=== PATIENT | male | born 1965 ===

== ENCOUNTER 2017-08-06 16:53 | Inpatient (IN) ==
[2017-08-06 18:54] LABS: Basophils % 0.2 %; Hematocrit 41.8 % (37.5-50.1)
[2017-08-06 18:55] LABS: Basophils # 0.1 K/mcL (0.0-0.2); Hemoglobin 13.5 g/dL (12.9-16.9); Immature Granulocytes % 0.7 % (0-4); Lymphocytes # 0.8 K/mcL (0.6-4.6); Mean Corpuscular HGB Conc 32.3 g/dL (31.6-35.5); Mean Corpuscular Hemoglobin 28.4 pg (28.0-33.3); Mean Corpuscular Volume 87.8 fL (83.0-100.0); Mean Platelet Volume 10.1 fL (9.4-12.4); Monocytes # 1.1 K/mcL (0.0-1.3); Monocytes % 4.3 %; Platelet Count 271 K/mcL (140-400); Red Blood Count 4.76 M/mcL (4.19-5.50); Red Cell Distribution Width 14.2 % (11.5-14.5); Segmented Neutrophils % 91.8 %
[2017-08-06 19:05] LABS: Albumin 3.7 g/dL (3.5-5.0); Albumin/Globulin Ratio 0.8 (1.1-2.2); Bilirubin,Total 1.8 mg/dL (0.2-1.2); Calcium 9.8 mg/dL (8.6-10.8); Globulin 4.5 g/dL (2.4-3.5); Potassium 4.1 mEq/L (3.5-4.5); Total Protein 8.2 g/dL (6.0-8.3)
--- NOTE | 2017-08-06 19:21 | Emergency Department Note ---
Disposition Clinical Impression: Diverticulitis, Perforated diverticulum, Leukocytosis Disposition: Admitted As Inpatient Condition: Good Referrals: Shawna Quiñones, [employer]ERE[employer] EQUIPMENT SALESPERSON [Primary Care Provider] - Forms: Work/School Release, ED Satisfaction Letter Time of Disposition: 22:36 Abdominal Pain HPI - General Chief Complaint: ED Abdominal Pain Stated Complaint: abd pain Time Seen by Provider: 08/06/17 19:15 Source: patient Nursing Notes Reviewed: Yes Vital Signs Reviewed: Yes - History of Present Illness HPI Narrative: Patient presenting to the ED with periumbilical abdominal pain since last night. Nonexertional. During onset. Has been constant, dull, achy, nonradiating. Associated with nausea and vomiting. States any movement of his abdomen whatsoever makes it worse. Decreased appetite. No dysuria, hematuria, flank pain, diarrhea. Subjective fever and chills. No previous abdominal surgeries. So, his primary care physician today who told him to come straight to the ER. Pain Scale: 6 - Related Data Allergies Allergy/AdvReac Type Severity Reaction Status Date / Time No Known Allergies Allergy Verified 08/06/17 17:26 All systems ED: reviewed and negative except as stated. Constitutional: Denies: fever Cardiovascular: Denies: chest pain Respiratory: Denies: dyspnea Gastrointestinal: Reports: abdominal pain, nausea, vomiting Integumentary: Denies: rash Abdominal Pain PMH - Past Medical History Medical history: Reports: kidney stones Male Surgical History: Reports: sinus surgery Psychiatric history: Reports: anxiety - Social History Smoking status: Never smoker Alcohol use: Reports: none Drug use: Reports: none Physical Exam - General Limitations: no limitations General appearance: alert, obese (Appears uncomfortable) - Head Head exam: atraumatic, normocephalic, normal inspection - Eye Eye exam: Present: normal appearance, PERRL, EOMI - Neck Neck exam: Present: normal inspection, full ROM, trachea midline - Respiratory Respiratory exam: Present: normal lung sounds bilaterally - Cardiovascular Cardiovascular exam: Present: regular rate, normal rhythm, normal heart sounds - Abdominal Exam Abdominal exam: Present: soft, tenderness, distention, guarding Abdominal tenderness: Present: epigastrium (Mild), moderate (Periumbilical) - Rectal Exam Rectal exam: Present: deferred - Extremities Exam Extremities exam: Present: normal inspection, full ROM. Absent: tenderness, pedal edema Course - Reevaluation(s) Reevaluation #1: patient presents with abd pain and leukocytosis. abdominal exam concerning for acute abdomen due to guarding. Will add lactic acid and CT abd/pelvis. R/o Appy vs perf vs hernia - Consultations Consultation #1: CT showed a perforated diverticulitis. We will contact surgery. Surgery states he will be in to see the patient. Time: 22:33 Vital Signs Temperature 99.2 F 08/06/17 17:26 Pulse Rate 90 08/06/17 17:26 Respiratory Rate 20 08/06/17 17:26 Blood Pressure 113/78 08/06/17 17:26 O2 Sat by Pulse Oximetry 93 08/06/17 17:26 Temperature 99.2 F 08/06/17 17:26 Pulse Rate 90 08/06/17 17:26 Respiratory Rate 20 08/06/17 17:26 Blood Pressure 113/78 08/06/17 17:26 O2 Sat by Pulse Oximetry 93 08/06/17 17:26 Oxygen Delivery Oxygen Delivery Room Air Abdominal Pain - MDM Narrative Medical decision making narrative: I examined this patient and my medical decision-making was reviewed with the Resident Physician. I agree with the documented findings, disposition and treatment plan as described except to the extent set forth below. Patient seen and evaluated today by Dr. Koehler and myself, I agree with his evaluation management plan, supervise care the patient's stay. Patient comes in with epigastric and periumbilical abdominal pain this been going on for 24 hours. He is not any surgeries on his abdomen recently. He denies any chest pain or back pain no fevers or chills. I think he could have ischemic bowel or he could have a hernia here in this area. He has an elevated creatinine so we cannot do IV contrast showed oral contrast CT try to make him more comfortable and check lab work. He will most likely need admission. He is in agreement with this plan. Abdomen/Pelvis CT 08/06/17 21:15 IMPRESSION: Evidence of lower descending/proximal colonic diverticulitis complicated by extraluminal fluid and gas suggesting perforation. Given the degree of wall thickening, follow-up to exclude underlying neoplasm is recommended. Fatty liver. Bibasilar atelectasis. D/ / Melanie Holden Cha, MD / Melanie Holden Cha, MD Interpreting Provider: Melanie Holden Cha, MD 2220 hrs. he has an elevated white count and a long with his CT findings we started him on IV antibiotics. Talking with surgery and then we will admit him. His critical care time excluding any separately billable procedures or 45 minutes. - Medical Records Medical records reviewed: Yes I reviewed the patient's medical records. - Lab Data Lab results reviewed: Yes I reviewed the patient's lab results. Result diagrams: 08/06/17 18:29 08/06/17 18:29 Lab Results 08/06/17 08/06/17 08/06/17 Range/Units 18:29 18:29 20:01 WBC 25.1 H (4.3-11.1) K/mcL RBC 4.76 (4.19-5.50) M/mcL Hgb 13.5 (12.9-16.9) g/dL Hct 41.8 (37.5-50.1) % MCV 87.8 (83.0-100.0) fL MCH 28.4 (28.0-33.3) pg MCHC 32.3 (31.6-35.5) g/dL RDW 14.2 (11.5-14.5) % Plt Count 271 (140-400) K/mcL MPV 10.1 (9.4-12.4) fL Immature Gran % 0.7 (0-4) % Seg Neutrophils % 91.8 % Lymphocytes % 3.0 % Monocytes % 4.3 % Eosinophils % 0.0 % Basophils % 0.2 % Neutrophils # 23.0 H (1.6-8.9) K/mcL Lymphocytes # 0.8 (0.6-4.6) K/mcL Monocytes # 1.1 (0.0-1.3) K/mcL Eosinophils # 0.0 (0.0-0.6) K/mcL Basophils # 0.1 (0.0-0.2) K/mcL Sodium 140 (136-145) mEq/L Potassium 4.1 (3.5-4.5) mEq/L Chloride 103 (98-109) mEq/L Carbon Dioxide 26 (19-29) mEq/L BUN 24 (8-26) mg/dL Creatinine 1.75 H (0.72-1.25) mg/dL Est GFR ( Amer) 50 L (> 60) Est GFR (Non-Af Amer) 41 L (> 60) BUN/Creatinine Ratio 14 (6-26) Glucose 121 H (70-99) mg/dL Calculated Osmolality 295 (280-300) Lactic Acid 2.0 (0.5-2.2) mmol/L Calcium 9.8 (8.6-10.8) mg/dL Total Bilirubin 1.8 H (0.2-1.2) mg/dL AST 12 (5-34) Units/L ALT 23 (0-55) Units/L Alkaline Phosphatase 92 (38-126) Units/L Serum Total Protein 8.2 (6.0-8.3) g/dL Albumin 3.7 (3.5-5.0) g/dL Globulin 4.5 H (2.4-3.5) g/dL Albumin/Globulin Ratio 0.8 L (1.1-2.2) Amylase 46 (25-125) Units/L Lipase 13 (8-78) Units/L Ur Specimen Adequacy Urine Color (Yellow) Urine Clarity (Clear) Urine Microscopic WBC (0-3) per hpf Ur Squamous Epith Cells (None-Few) per lpf Urine Bacteria (None-Few) per hpf Hyaline Casts (None-Few) per lpf Ur Culture Indicated? (NO) 08/06/17 Range/Units 21:19 WBC (4.3-11.1) K/mcL RBC (4.19-5.50) M/mcL Hgb (12.9-16.9) g/dL Hct (37.5-50.1) % MCV (83.0-100.0) fL MCH (28.0-33.3) pg MCHC (31.6-35.5) g/dL RDW (11.5-14.5) % Plt Count (140-400) K/mcL MPV (9.4-12.4) fL Immature Gran % (0-4) % Seg Neutrophils % % Lymphocytes % % Monocytes % % Eosinophils % % Basophils % % Neutrophils # (1.6-8.9) K/mcL Lymphocytes # (0.6-4.6) K/mcL Monocytes # (0.0-1.3) K/mcL Eosinophils # (0.0-0.6) K/mcL Basophils # (0.0-0.2) K/mcL Sodium (136-145) mEq/L Potassium (3.5-4.5) mEq/L Chloride (98-109) mEq/L Carbon Dioxide (19-29) mEq/L BUN (8-26) mg/dL Creatinine (0.72-1.25) mg/dL Est GFR ( Amer) (> 60) Est GFR (Non-Af Amer) (> 60) BUN/Creatinine Ratio (6-26) Glucose (70-99) mg/dL Calculated Osmolality (280-300) Lactic Acid (0.5-2.2) mmol/L Calcium (8.6-10.8) mg/dL Total Bilirubin (0.2-1.2) mg/dL AST (5-34) Units/L ALT (0-55) Units/L Alkaline Phosphatase (38-126) Units/L Serum Total Protein (6.0-8.3) g/dL Albumin (3.5-5.0) g/dL Globulin (2.4-3.5) g/dL Albumin/Globulin Ratio (1.1-2.2) Amylase (25-125) Units/L Lipase (8-78) Units/L Ur Specimen Adequacy See below A Urine Color [place] A (Yellow) Urine Clarity Clear (Clear) Urine Microscopic WBC 3-5 H (0-3) per hpf Ur Squamous Epith Cells Many H (None-Few) per lpf Urine Bacteria Few (None-Few) per hpf Hyaline Casts Few (None-Few) per lpf Ur Culture Indicated? NO (NO) - Radiology Data Radiology results reviewed: Yes I reviewed the patient's radiology results. - EKG Data EKG attestation: Yes I reviewed and interpreted this EKG. EKG results narrative: Sinus rhythm, rate 87, IA interval 136, QRS 86, QTC 400, normal axis, no acute ischemic changes. However, there is poor R-wave progression.
[2017-08-06] MEDS ORDERED: 0.9 % Sodium Chloride 1,000 ML IVC ONE (19:27)
[2017-08-06] MEDS ORDERED: *HR* HYDROmorphone (PF) 1 MG/ML SYRINGE IVP ONE ×2 (19:27→20:27)
[2017-08-06] MEDS ORDERED: Ondansetron 4 MG/2 ML VIAL IVP ONE (19:27)
[2017-08-06 21:45] LABS: Bacteria,Urine Few per hpf (None-Few); Squamous Epithelial Cell,Urine Many per lpf (None-Few)
[2017-08-06 21:51] LABS: Clarity,Urine Clear (Clear); Color,Urine Orange (Yellow)
[2017-08-06 21:52] LABS: Hyaline Casts,Urine Few per lpf (None-Few)
[2017-08-06] MEDS ORDERED: Piperacillin/Tazobactam 4.5 GM in D5% in Water (Mini-Bag+) 100 ML IVPB ONE (22:26)
[2017-08-06] MEDS: 0.9 % Sodium Chloride 1,000 ML IVC SCH (22:49)
[2017-08-07] MEDS ORDERED: 0.9 % Sodium Chloride 1,000 ML IVC ONE (00:41)
[2017-08-07] MEDS ORDERED: diazePAM 5 MG TABLET PO PRN (00:52)
[2017-08-07] MEDS ORDERED: tiZANidine 4 MG TABLET PO PRN (00:52)
--- NOTE | 2017-08-07 01:26 | General Surg History&Physical ---
Date of Encounter: 08/07/17 Time of Encounter: 01:23 Assessment and Plan (1) Diverticulitis Current Visit: Yes Status: Acute - NPO -IVF:D5LR@150 - antibiotics: zosyn - admit to inpatient -DVT prophylaxis -activity as tolerated - morphine for pain control - trend WBC, temperature I suspect that the perforation has sealed; he is not diffusely peritoneal nor does he have a surgical abdomen at this time; however, should his exam worsen or his labs and vitals suggest ongoing sepsis due to his diverticulitis, then will reconsider surgical intervention at that time The assessment and plan as outlined above was discussed with the patient and/or family members who expressed understanding and agreement. All questions were answered. Qualifiers: Diverticulitis site: large intestine Diverticulitis complication: with perforation and without abscess Qualified Code(s): K57.20 - Diverticulitis of large intestine with perforation and abscess without bleeding Code(s): K57.92 - Diverticulitis of intestine, part unspecified, without perforation or abscess without bleeding (2) Leukocytosis Current Visit: Yes Status: Acute -NPO -IVF -antibiotics: zosyn consequence of perforated diverticulitis; will trend with temperatures; The assessment and plan as outlined above was discussed with the patient and/or family members who expressed understanding and agreement. All questions were answered. Qualifiers: Qualified Code(s): D72.829 - Elevated white blood cell count, unspecified (3) Acute renal failure Current Visit: Yes Status: Acute -IVF - trend labs (BUN, Cr, HCO3) and UOP to assess for resuscitation - likley due to SIRS response from diverticulitis; The assessment and plan as outlined above was discussed with the patient and/or family members who expressed understanding and agreement. All questions were answered. Qualifiers: Qualified Code(s): N17.9 - Acute kidney failure, unspecified History of Present Illness Chief complaint: abdominal pain HPI: Mr. Bee is a morbidly obese 52 year old male who presents with 2 days of sharp abdominal pain localized to the left lower quadrant and suprapubic region nonradiating with no identifiable alleviating or exacerbating factors. The pain is not associated with nausea vomiting fevers chills chest pain or shortness of breath and is however associated with anorexia and poor by mouth intake. The patient was at work when he was ordered by his employer to go home because of a concern for the stomach flu the patient went to the emergency department for further evaluation due to worsening pain a CT scan was obtained demonstrating a concern for perforated diverticulitis. Surgery was consult for further evaluation Past Med Surg Social Fam HX - Past Medical History Medical history: kidney stones, other (morbid obesity) Psychiatric history: anxiety - Social History Smoking Status: Never smoker Smokeless Tobacco Status: No Alcohol use: none (stopped drinking 10+ years ago) Drug use: none Occupational status: employed Activity Level: Independent ambulation Medications and Allergies Escitalopram [Lexapro] 20 mg PO DAILY 08/06/17 [History] Ondansetron HCl [Ondansetron HCl] 4 mg PO DAILY 08/06/17 [History] Promethazine [Phenergan] 25 mg PO QPM 08/06/17 [History] Tizanidine HCl [Tizanidine HCl] 4 mg PO Q8H PRN 08/06/17 [History] diazePAM [Valium] 5 mg PO DAILY PRN 08/06/17 [History] 3 Allergy/AdvReac Type Severity Reaction Status Date / Time No Known Allergies Allergy Verified 08/06/17 17:26 Review of Systems All systems PM: reviewed and no additional remarkable complaints except as stated All systems PM: A 10-system review of systems was performed and is negative for pertinent findings except as documented above in the HPI. General Surgery Exam Initial Vital Signs Temp Pulse Resp BP Pulse Ox 99.2 F 90 20 113/78 93 08/06/17 17:26 08/06/17 17:26 08/06/17 17:26 08/06/17 17:26 08/06/17 17:26 - General physical appearance well developed, well nourished, no distress, obese - Eyes normal ocular movement - ENT normocephalic, CN 2-12 grossly intact - Respiratory normal expansion, normal respiratory effort, clear to auscultation - Abdomen Abdomen general surgery: Present: soft, tender Abdominal Tenderness: Present: LLQ (non peritoneal), suprapubic (non peritoneal) Hernia: Present: none - Integumentary Integumentary general surgery: Present: other (no pitting edema) - Psychiatric Psychiatric general surgery: Present: A&Ox3, appropriate Results - Labs 08/06/17 18:29 08/06/17 18:29 Abnormal lab results WBC 25.1 K/mcL (4.3-11.1) H 08/06/17 18:29 Neutrophils # 23.0 K/mcL (1.6-8.9) H 08/06/17 18:29 Creatinine 1.75 mg/dL (0.72-1.25) H 08/06/17 18:29 Est GFR ( Amer) 50 (> 60) L 08/06/17 18:29 Est GFR (Non-Af Amer) 41 (> 60) L 08/06/17 18:29 Glucose 121 mg/dL (70-99) H 08/06/17 18:29 POC Glucose 115 (58-89) H 08/07/17 00:49 Total Bilirubin 1.8 mg/dL (0.2-1.2) H 08/06/17 18: Globulin 4.5 g/dL (2.4-3.5) H 08/06/17 18:29 Albumin/Globulin Ratio 0.8 (1.1-2.2) L 08/06/17 18:29 Ur Specimen Adequacy See below A 08/06/17 21:19 Urine Color Couch (Yellow) A 08/06/17 21:19 Urine Microscopic WBC 3-5 per hpf (0-3) H 08/06/17 21:19 Ur Squamous Epith Cells Many per lpf (None-Few) H 08/06/17 21:19 All other labs normal. - Imaging CT scan - abdomen: report reviewed (fat stranding in LLQ/suprapubic region; (+) free air - focal area)
[2017-08-07] MEDS: *HR* Morphine 2 MG/ML SYRINGE IVP PRN ×6 (01:31→21:29)
[2017-08-07 04:41] LABS: INR 1.7; Prothrombin Time 18.2 Seconds (9.4-12.1)
[2017-08-07 04:44] LABS: Activated Partial Thrombo Time 28.2 Seconds (26.0-36.0); Basophils % 0.2 %; Eosinophils % 0.1 %; Hematocrit 36.1 % (37.5-50.1); Immature Granulocytes % 0.5 % (0-4); Lymphocytes # 0.9 K/mcL (0.6-4.6); Lymphocytes % 4.8 %; Mean Corpuscular HGB Conc 31.6 g/dL (31.6-35.5); Mean Corpuscular Hemoglobin 28.1 pg (28.0-33.3); Mean Corpuscular Volume 89.1 fL (83.0-100.0); Mean Platelet Volume 9.9 fL (9.4-12.4); Monocytes # 0.8 K/mcL (0.0-1.3); Monocytes % 4.3 %; Neutrophils # 17.1 K/mcL (1.6-8.9); Platelet Count 202 K/mcL (140-400); Red Blood Count 4.05 M/mcL (4.19-5.50); Red Cell Distribution Width 14.5 % (11.5-14.5); Segmented Neutrophils % 90.1 %
[2017-08-07 04:57] LABS: Hemoglobin 11.4 g/dL (12.9-16.9)
[2017-08-07] MEDS: *HR* Heparin 5,000 UNIT/ML VIAL SQ SCH ×3 (05:15→21:47)
[2017-08-07 06:09] LABS: Calcium 8.8 mg/dL (8.6-10.8); Potassium 4.5 mEq/L (3.5-4.5)
[2017-08-07] MEDS: Piperacillin/Tazobactam 3.375 GM in D5% in Water (Mini-Bag+) 100 ML IVPB SCH ×2 (07:51→15:55)
[2017-08-07] MEDS: Ondansetron ODT 4 MG TAB.RAPDIS PO SCH (07:53)
[2017-08-07] MEDS ORDERED: D5% in 0.45% NACL w KCl 20 MEQ/1,000 ML MLS IVC SCH (09:00)
[2017-08-07] MEDS ORDERED: D5% in 0.45% NACL 1,000 ML IVC ONE (09:38)
[2017-08-07] MEDS: D5% in 0.45% NACL 1,000 ML IVC SCH ×3 (10:00→22:14)
--- NOTE | 2017-08-07 10:31 | General Surgery Progress Note ---
Date of Encounter: 08/07/17 Time of Encounter: 08:15 - Assessment and Plan (1) Diverticulitis Current Visit: Yes Status: Acute still with abdominal pain, although improved keep NPO cont IVF; change to MIVF @15o0 cont abx regimen transfer to regular surg floor Qualifiers: Diverticulitis site: large intestine Diverticulitis complication: with perforation and without abscess Qualified Code(s): K57.20 - Diverticulitis of large intestine with perforation and abscess without bleeding Code(s): K57.92 - Diverticulitis of intestine, part unspecified, without perforation or abscess without bleeding (2) Leukocytosis Current Visit: Yes Status: Acute improved; repeat CBC in AM cont with abx Qualifiers: Qualified Code(s): D72.829 - Elevated white blood cell count, unspecified (3) Acute renal failure Current Visit: Yes Status: Acute worsening renal failure; likely 2/2 hypovolemia; - strict I/O; if UOP is less than 0.5cc/kg/hr by end of first shift 1500, then will place toscano catheter repeat labs in AM Qualifiers: Qualified Code(s): N17.9 - Acute kidney failure, unspecified Subjective Patient reports: no new complaints, still having pain, pain is less, no flatus, no bowel movement, afebrile Objective Intake and Output 08/06/17 08/07/17 08/07/17 23:59 07:59 15:59 Intake Total 1000 / 1000 Balance 1000 / 1000 Intake: IV Fluids 1000 / 1000 0.9 % Sodium Chloride 1, 1000 / 1000 000 ML @ 150 mls/hr IVC . Q6H40M COUNTS INCLUDE 234 BEDS AT [facility] Rx#:[id number] Other: Weight 111.6 kg Blood Glucose* 115 Patient Weight 08/07/17 23:59 Weight 111.6 kg - General physical appearance well developed, well nourished, no distress - Respiratory normal expansion, normal respiratory effort, clear to auscultation - Cardiovascular Cardiovascular exam: Present: RRR - Abdomen Abdomen: Present: soft, tender Abdominal Tenderness: LLQ, suprapubic Hernia: none - Integumentary no rash - Neurologic CN 2-12 grossly intact - Psychiatric oriented to time, oriented to person, oriented to place - Labs 08/07/17 04:29 08/07/17 05:47 Consult Discharge Plan - Plan Referrals: Shawna Quiñones, CRIMPER OPERATOR [Primary Care Provider] -
[2017-08-07] MEDS: Pantoprazole 40 MG VIAL IVP SCH (13:25)
--- NOTE | 2017-08-07 16:10 | Electrocardiograph Report ---
[address] [place], [place] [address] Test Date: 2017-08-06 Pat Name: Augustine Bee Department: 105 Room: 11 Gender: M Skilled Helper: WAQAR : 1965 Requested By: Dewayne Zhao Order Number: [id number] Reading MD: Ron George MD Measurements Intervals [place] Rate: 87 P: 11 NM: 136 QRS: 5 QRSD: 86 T: -1 QT: 356 QTc: 400 Interpretive Statements SINUS RHYTHM MINIMAL VOLTAGE CRITERIA FOR LVH Electronically Signed On 08-07-2017 16:08:49 EDT by Ron George MD
[2017-08-08] MEDS: Piperacillin/Tazobactam 3.375 GM in D5% in Water (Mini-Bag+) 100 ML IVPB SCH ×4 (00:21→23:27)
[2017-08-08] MEDS ORDERED: *HR* HYDROmorphone 20 MG/20 ML PCA IVC PRN (00:32)
[2017-08-08] MEDS: *HR* Morphine 2 MG/ML SYRINGE IVP PRN (01:30)
[2017-08-08] MEDS: D5% in 0.45% NACL 1,000 ML IVC SCH ×3 (04:14→19:31)
[2017-08-08] MEDS: *HR* Heparin 5,000 UNIT/ML VIAL SQ SCH ×3 (04:54→23:27)
[2017-08-08 06:22] LABS: Basophils % 0.2 %; Eosinophils # 0.1 K/mcL (0.0-0.6); Eosinophils % 0.5 %; Hematocrit 35.7 % (37.5-50.1); Immature Granulocytes % 0.4 % (0-4); Lymphocytes # 0.6 K/mcL (0.6-4.6); Lymphocytes % 5.8 %; Mean Corpuscular HGB Conc 30.8 g/dL (31.6-35.5); Mean Corpuscular Hemoglobin 27.3 pg (28.0-33.3); Mean Corpuscular Volume 88.6 fL (83.0-100.0); Mean Platelet Volume 10.2 fL (9.4-12.4); Monocytes # 0.5 K/mcL (0.0-1.3); Monocytes % 4.9 %; Neutrophils # 9.2 K/mcL (1.6-8.9); Platelet Count 219 K/mcL (140-400); Red Blood Count 4.03 M/mcL (4.19-5.50); Red Cell Distribution Width 14.3 % (11.5-14.5); Segmented Neutrophils % 88.2 %
[2017-08-08 06:33] LABS: BUN/Creatinine Ratio 12 (6-26); Calcium 8.7 mg/dL (8.6-10.8); Carbon Dioxide 25 mEq/L (19-29); Chloride 106 mEq/L (98-109); Glucose 148 mg/dL (70-99); Osmolality,Calculated 290 (280-300); Potassium 3.8 mEq/L (3.5-4.5); eGFR For African Americans > 60 (> 60); eGFR For Non-African Americans 54 (> 60)
[2017-08-08 06:36] LABS: Blood Urea Nitrogen 17 mg/dL (8-26)
[2017-08-08 06:37] LABS: Sodium 138 mEq/L (136-145)
--- NOTE | 2017-08-08 08:17 | General Surgery Progress Note ---
<Lorenza Berrios - Last Filed: 08/08/17 08:15> Date of Encounter: 08/08/17 Time of Encounter: 07:15 - Assessment and Plan (1) Diverticulitis Current Visit: Yes Status: Acute Improved. States discomfort is significantly improved. He endorses an appetite. WBC is normalized. -Continue supportive care and discomfort management -Clear liquids, advanced items tolerated -Decrease IV fluids to 75 ML's per hour will stop if he tolerates breakfast and lunch. 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 Add Percocet PRN 10 per 325 mg Q4 hours -Ambulate in the hallways at least 3 times daily and out of bed for all meals. Strongly encouraged the need for ambulation and use of incentive spirometer for pulmonary prevention. Patient verbalized understanding and adherence. D/C planning in the next 24-48 hours pending clinical course. Qualifiers: Diverticulitis site: large intestine Diverticulitis complication: with perforation and without abscess Qualified Code(s): K57.20 - Diverticulitis of large intestine with perforation and abscess without bleeding (2) Leukocytosis Current Visit: Yes Status: Acute See plan above Qualifiers: Qualified Code(s): D72.829 - Elevated white blood cell count, unspecified (3) Acute renal failure Current Visit: Yes Status: Acute Renal function is greatly improving. Continue to monitor urine output. Will continue to monitor. Qualifiers: Qualified Code(s): N17.9 - Acute kidney failure, unspecified Subjective Patient reports: no new complaints, feels better, still having pain, pain is less, voiding w/o difficulty, flatus, no bowel movement, afebrile Narrative: Patient states he has not attempted to ambulate because getting up "makes my pain worse." Objective Vital Signs - Last 8 Hours Temp Pulse Resp BP Pulse Ox 08/08/17 07:42 98.3 F 80 17 117/78 94 08/08/17 03:15 98.3 F 91 14 137/83 93 Intake and Output 08/07/17 08/08/17 08/08/17 23:59 07:59 15:59 Intake Total 1100 / 1100 950 / 950 Output Total 525 / 525 0 / 0 Balance 575 / 575 950 / 950 Intake: IV Fluids 1100 / 1100 950 / 950 D5% And 0.45% Nacl 1000 1000 / 1000 850 / 850 Ml Bag 1,000 ML @ 150 mls /hr IVC .Q6H40M [facility] Rx#: [id number] Zosyn 3.375 GM In 100 / 100 100 / 100 Dextrose 5% (Minibag+) 100 ML 100 ML @ 25 mls/hr IVPB Q8HR [facility] Rx#: [id number] Oral 0 / 0 0 / 0 Output: Urine 525 / 525 0 / 0 Other: Weight 111.13 kg Blood Glucose* 144 Patient Weight 08/08/17 23:59 Weight 111.13 kg - General physical appearance well nourished, no distress, moderate pain (With palpation) - Eyes normal ocular movement - ENT atraumatic, normocephalic - Neck Neck exam: trachea midline - Respiratory normal expansion, normal respiratory effort, clear to auscultation - Cardiovascular Cardiovascular exam: Present: RRR, distant heart sounds - Abdomen Abdomen: Present: bowel sounds present, soft, tender (To moderate palpation) Hernia: none - Integumentary no rash - Neurologic CN 2-12 grossly intact - Musculoskeletal normal gait, normal posture - Psychiatric oriented to time, oriented to person, oriented to place, speech is normal, memory intact - Labs 08/08/17 05:56 08/08/17 05:56 Diabetes panel 08/08/17 Range/Units 05:56 Sodium 138 (136-145) mEq/L Potassium 3.8 (3.5-4.5) mEq/L Chloride 106 (98-109) mEq/L Carbon Dioxide 25 (19-29) mEq/L BUN 17 D (8-26) mg/dL Creatinine 1.38 H (0.72-1.25) mg/dL Glucose 148 H (70-99) mg/dL Calcium 8.7 (8.6-10.8) mg/dL Calcium panel 08/08/17 Range/Units 05:56 Calcium 8.7 (8.6-10.8) mg/dL Pituitary panel 08/08/17 Range/Units 05:56 Sodium 138 (136-145) mEq/L Potassium 3.8 (3.5-4.5) mEq/L Chloride 106 (98-109) mEq/L Carbon Dioxide 25 (19-29) mEq/L BUN 17 D (8-26) mg/dL Creatinine 1.38 H (0.72-1.25) mg/dL Glucose 148 H (70-99) mg/dL Calcium 8.7 (8.6-10.8) mg/dL Adrenal panel 08/08/17 Range/Units 05:56 Sodium 138 (136-145) mEq/L Potassium 3.8 (3.5-4.5) mEq/L Chloride 106 (98-109) mEq/L Carbon Dioxide 25 (19-29) mEq/L BUN 17 D (8-26) mg/dL Creatinine 1.38 H (0.72-1.25) mg/dL Glucose 148 H (70-99) mg/dL Calcium 8.7 (8.6-10.8) mg/dL Consult Discharge Plan - Plan Referrals: Shawna Quiñones, [employer] ARCHITECT [Primary Care Provider] - <Hai Guzman - Last Filed: 08/08/17 11:21> Date of Encounter: 08/08/17 - Assessment and Plan (1) Diverticulitis Current Visit: Yes Status: Acute Qualifiers: Diverticulitis site: large intestine Diverticulitis complication: with perforation and without abscess Qualified Code(s): K57.20 - Diverticulitis of large intestine with perforation and abscess without bleeding Code(s): K57.92 - Diverticulitis of intestine, part unspecified, without perforation or abscess without bleeding (2) Leukocytosis Current Visit: Yes Status: Acute Qualifiers: Qualified Code(s): D72.829 - Elevated white blood cell count, unspecified (3) Acute renal failure Current Visit: Yes Status: Acute Qualifiers: Qualified Code(s): N17.9 - Acute kidney failure, unspecified Objective Vital Signs - Last 8 Hours Temp Pulse Resp BP Pulse Ox 08/08/17 10:49 97.4 F L 83 16 112/74 94 08/08/17 07:42 98.3 F 80 17 117/78 94 Intake and Output 08/07/17 08/08/17 08/08/17 23:59 07:59 15:59 Intake Total 1100 / 1100 950 / 950 120 / 120 Output Total 525 / 525 0 / 0 Balance 575 / 575 950 / 950 120 / 120 Intake: IV Fluids 1100 / 1100 950 / 950 D5% And 0.45% Nacl 1000 1000 / 1000 850 / 850 Ml Bag 1,000 ML @ 150 mls /hr IVC .Q6H40M [facility] Rx#: [id number] Zosyn 3.375 GM In 100 / 100 100 / 100 Dextrose 5% (Minibag+) 100 ML 100 ML @ 25 mls/hr IVPB Q8HR [facility] Rx#: [id number] Oral 0 / 0 0 / 0 120 / 120 Output: Urine 525 / 525 0 / 0 Other: Meal Clears Percent of Meal Consumed 0% Weight 111.13 kg Blood Glucose* 144 Patient Weight 08/08/17 23:59 Weight 111.13 kg - Labs 08/08/17 05:56 08/08/17 05:56 Diabetes panel 08/08/17 Range/Units 05:56 Sodium 138 (136-145) mEq/L Potassium 3.8 (3.5-4.5) mEq/L Chloride 106 (98-109) mEq/L Carbon Dioxide 25 (19-29) mEq/L BUN 17 D (8-26) mg/dL Creatinine 1.38 H (0.72-1.25) mg/dL Glucose 148 H (70-99) mg/dL Calcium 8.7 (8.6-10.8) mg/dL Calcium panel 08/08/17 Range/Units 05:56 Calcium 8.7 (8.6-10.8) mg/dL Pituitary panel 08/08/17 Range/Units 05:56 Sodium 138 (136-145) mEq/L Potassium 3.8 (3.5-4.5) mEq/L Chloride 106 (98-109) mEq/L Carbon Dioxide 25 (19-29) mEq/L BUN 17 D (8-26) mg/dL Creatinine 1.38 H (0.72-1.25) mg/dL Glucose 148 H (70-99) mg/dL Calcium 8.7 (8.6-10.8) mg/dL Adrenal panel 08/08/17 Range/Units 05:56 Sodium 138 (136-145) mEq/L Potassium 3.8 (3.5-4.5) mEq/L Chloride 106 (98-109) mEq/L Carbon Dioxide 25 (19-29) mEq/L BUN 17 D (8-26) mg/dL Creatinine 1.38 H (0.72-1.25) mg/dL Glucose 148 H (70-99) mg/dL Calcium 8.7 (8.6-10.8) mg/dL - Attending Attestation I have personally seen and examined the patient, evaluated lab results, and agree with the above proposed plan. okay to begin clear liquids; will wait for resolution of pain and bowel function prior to advancing diet.
[2017-08-08] MEDS: Pantoprazole 40 MG VIAL IVP SCH (08:56)
[2017-08-08] MEDS: Ondansetron ODT 4 MG TAB.RAPDIS PO SCH (08:56)
[2017-08-08] MEDS: 0.9 % Sodium Chloride 1,000 ML IVC SCH (19:32)
[2017-08-08] MEDS: *HR* OxyCODONE/APAP 10/325 TABLET PO PRN (20:22)
[2017-08-09] MEDS: *HR* OxyCODONE/APAP 10/325 TABLET PO PRN ×2 (03:19→16:43)
[2017-08-09] MEDS: *HR* Heparin 5,000 UNIT/ML VIAL SQ SCH (05:31)
[2017-08-09] MEDS: Piperacillin/Tazobactam 3.375 GM in D5% in Water (Mini-Bag+) 100 ML IVPB SCH (09:28)
[2017-08-09] MEDS: Pantoprazole 40 MG VIAL IVP SCH (09:29)
[2017-08-09] MEDS: D5% in 0.45% NACL 1,000 ML IVC SCH (09:29)
[2017-08-09] MEDS: Ondansetron ODT 4 MG TAB.RAPDIS PO SCH (09:29)
[2017-08-09 11:42] VITALS: BP 103/67
--- NOTE | 2017-08-09 14:43 | Discharge Summary ---
Date of Encounter: 08/09/17 Time of Encounter: 14:40 - Discharge Diagnosis (1) Diverticulitis Priority: Primary Status: Resolved Qualifiers: Diverticulitis site: large intestine Diverticulitis bleeding: without bleeding Diverticulitis complication: with perforation and without abscess Qualified Code(s): K57.20 - Diverticulitis of large intestine with perforation and abscess without bleeding - Discharge Medications Prescriptions: OxyCODONE/APAP 5/325 [Percocet 5/325 MG] 1 each PO Q6HR PRN #28 tablet PRN Reason: Pain Ciprofloxacin [Cipro] 500 mg PO BID #28 tablet Docusate [Colace] 100 mg PO BID #30 capsule metroNIDAZOLE [Flagyl] 500 mg PO TID #42 tablet Home Medications: Escitalopram [Lexapro] 20 mg PO DAILY 08/06/17 [History] Ondansetron HCl 4 mg PO DAILY 08/06/17 [History] Promethazine [Phenergan] 25 mg PO QPM 08/06/17 [History] Tizanidine HCl 4 mg PO Q8H PRN 08/06/17 [History] diazePAM [Valium] 5 mg PO DAILY PRN 08/06/17 [History] Ciprofloxacin [Cipro] 500 mg PO BID #28 tablet 08/09/17 [Rx] Docusate [Colace] 100 mg PO BID #30 capsule 08/09/17 [Rx] OxyCODONE/APAP 5/325 [Percocet 5/325 MG] 1 each PO Q6HR PRN #28 tablet 08/09/17 [Rx] metroNIDAZOLE [Flagyl] 500 mg PO TID #42 tablet 08/09/17 [Rx] Allergies/Adverse Reactions: 3 Allergy/AdvReac Type Severity Reaction Status Date / Time No Known Allergies Allergy Verified 08/06/17 17:26 General Surgery Exam Initial Vital Signs Temp Pulse Resp BP Pulse Ox 99.2 F 90 20 113/78 93 08/06/17 17:26 08/06/17 17:26 08/06/17 17:26 08/06/17 17:26 08/06/17 17:26 - General physical appearance well developed, well nourished, no distress, no pain - Eyes normal ocular movement - ENT normal mucosa, atraumatic, normocephalic - Neck trachea midline - Respiratory normal expansion, normal respiratory effort, clear to auscultation - Cardiovascular Cardiovascular exam: Present: RRR - Abdomen Abdomen general surgery: Present: bowel sounds present, soft, tender (minimal) - Integumentary Integumentary general surgery: Present: warm and dry - Neurologic Present: CN 2-12 grossly intact - Musculoskeletal Present: normal gait, normal posture - Psychiatric Psychiatric general surgery: Present: appropriate, oriented to person, oriented to place, oriented to time, speech is normal, memory intact Date of admission: 08/07/17 08:13 Primary care physician: Shawna Quiñones CNP Discharging clinician: Hai Guzman (Prasad Gustafson) Anticipated date of discharge: 08/09/17 - Patient Status Disposition: Home, Self-Care Condition: Good Functional capacity at discharge: independent ambulation Overall status at discharge: patient is progressing back to baseline - Discharge Instructions Instructions: Low Fiber Diet (GEN) Follow Up With: Shawna Quiñones CNP [Primary Care Provider] - Hai Guzman MD [Non-Partnered Physician] - 08/19/17 2:15 pm (hospital follow -up) - Diet and Activity Activity: increase activity as tolerated Diet: other (Low fiber diet for 6 weeks) - Hospital Course Hospital course: Mr. Bee is a 52 year old male presented to the hospital with complaints of abdominal pain. He was found to have diverticulitis with a contained perforation. The patient was treated with conservative measures including bowel rest, IV antibiotics, IV fluids, supportive care. His symptoms did improve with conservative measures. He was started on a clear liquid diet and slowly advanced to a low-residue diet which she was tolerating without difficulty. He did have an acute kidney injury which was improving with IV fluids. His vital signs are stable and he is afebrile, his pain is well controlled, he is voiding and ambulating without difficulty. We will begin discharge planning to home and plan for outpatient follow-up in the next 10-14 days in the surgical office. - Time Spent with Patient Total time spent providing and/or coordinating discharge services: Less than 30 minutes Labs on day of discharge: Labs from last 24 hours 08/09/17 08/08/17 00:10 17:27 POC Glucose 97 H 130 H
== END 2017-08-09 17:20 | disposition home or self-care (01) | DRG 392 ==
LOC: ICNU 16:53 → EMEROO 16:53 → ICNU 08-07 00:45 → 3ANU 08-07 22:04
PROVIDERS: ADMIT Surgery; ATTEND Surgery